=== PATIENT | female | born 1955 | race Caucasian/White ===

== ENCOUNTER 2022-05-05 14:45 | Emergency (ER) | payer MEDICARE, BC ==
[2022-05-05] MEDS ORDERED: Oxymetazoline 0.05% Nasal Spray 30 ML Bottle NAS ONE (15:51)
== END 2022-05-05 16:38 | disposition home or self-care (01) ==
LOC: JD.ED 14:45
DX: R04.0 Epistaxis (principal)
CPT/HCPCS: 36415; 85025; 99283; A9270